=== PATIENT | male | born 1995 | race Caucasian/White ===

== ENCOUNTER 2021-12-24 13:03 | Emergency (ER) | payer MEDICAID ==
[~2021-12-24] VITALS: Ht 185.4 cm; Wt 81.6 kg
[2021-12-24] MEDS ORDERED: HYDROcodone-ACET 7.5/325MG TAB PO ONE (23:15)
[2021-12-25 02:31] VITALS: BP 135/75
== END 2021-12-25 02:49 | disposition home or self-care (01) ==
LOC: ER 13:03
DX: L02.01 Cutaneous abscess of face (principal)
CPT/HCPCS: 10060; 87077; 87186; 87205